=== PATIENT | female | born 1995 | race Two or more races ===

== ENCOUNTER → 2024-03-10 13:07 | Outpatient (BNVA) | payer OTHER, SELFPAY | PROVIDERS: Visit Provider Physician Assistant Medical | DX: Z13.89 Encounter for screening for other disorder (principal) | CPT/HCPCS: 73564; 73610; 99203 ==

== ENCOUNTER → 2024-03-17 14:41 | Outpatient (BNVA) | payer OTHER, SELFPAY | PROVIDERS: Visit Provider Registered Nurse | DX: Z13.89 Encounter for screening for other disorder (principal) | CPT/HCPCS: 99213 ==

== ENCOUNTER 2024-03-18 14:02 | Outpatient (AMB) | payer OTHER, SELFPAY ==
--- NOTE | 2024-03-18 14:16 | A.OFFVIS_ITS ---
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 Patient reports that she was walking whe she fell forward on her left side, injuring her ankle and bruising of her knee. States s he got up and kept walking however she continued to have pain. She was seen at work connection where she was placed in air cast. Her current pain level is 5 out of 10. Finds some relief with elevation and icing. 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 She reports she got up and kept walking after sustaining the fall. She was seen at work connection where she was placed in an air cast. She currently states she has jabbing pain in her ankle that is aggravated with weight bearing and ambulation. She rates the pain as 5 on the scale of 0-10. She finds relief with elevation and icing. 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 [facility] Social History (Updated 03/18/24 @ 14:18 by LAURITA Gutierrez) Patient Tobacco Use Status: Never used Tobacco Current occupational status: employed Current occupation: [employer] [place] [employer] [employer] [facility] Review of Systems Const All systems reviewed & are unremarkable except as noted in HPI and below Physical Exam Vital Signs: BMI result Body Mass Index 32.4 Const General: cooperative, healthy appearing, comfortable, no acute distress, well developed and alert Orientation/consciousness: patient oriented x3 HEENT Head: Yes normal to inspection, Yes normocephalic and Yes atraumatic Eyes General: appearance normal, both eyes and all related structures Resp Effort & Inspection: normal respiratory effort and able to speak in complete sentences Cardio Rate: regular rate Peripheral pulses: Peripheral pulses 2+ throughout GI Palpation (GI): Soft to palpation Skin Lesions: no lesions Rashes: no rashes Neuro General: patient oriented x3 Extrem Other: Left ankle: Normal to inspection with trace swelling over the medial malleolus with tenderness along the soft tissues. No discomfort along the posterior aspect of the ankle, no deformity along the Achilles tendon, negative Rubalcava?s. No pain along the syndesmosis or anterior tibia. No laxity, NVI. Results Reviewed Results Reviewed: xrays of the left ankle obtained outside the office are negative for acute fracture or dislocations. Assessment & Plan Assessment & Plan (1) Left ankle sprain: Code(s): S93.402A - Sprain of unspecified ligament of left ankle, initial encounter Category: Medical Qualifiers: Encounter type: initial encounter Involved ligament of ankle: anterior talofibular ligament Qualified Code(s): S93.492A - Sprain of other ligament of left ankle, initial encounter Plan We discussed options which include PT, NSAIDs and bracing. The patient will proceed with PT and NSAIDs. She was also given a lace up ankle brace in the office today. If symptoms persist, the patient will contact me for an injection, otherwise, PRN. Orders: Orders PT Evaluation and Treatment Today S93.402A - Sprain of unspecified ligament of left ankle, initial encounter Medications: New ibuprofen 800 mg PO Q8H PRN 90 tabs 3RF pain 30 days S52.209D - Unspecified fracture of shaft of unspecified ulna, subsequent encounter for closed fracture with routine healing Patient Instructions: Scribed for Angy Calderón PA-C, by Alton Hudson certified medical technician, on 03/18/2024 at 2:00 PM EST.? I, Angy Calderón PA-C, have personally reviewed and agree with the information entered by the scribe. Coding Level of Care Code New Pt Level 3 (05998) Diagnoses Sprain of anterior talofibular ligament of left ankle, initial encounter S93.492A Encounter type: initial encounter Involved ligament of ankle: anterior talofibular ligament
[2024-03-18 14:17] VITALS: BMI 32.4
== END 2024-03-18 15:49 | disposition home or self-care (01) ==
LOC: HO.HOS 14:04
PROVIDERS: Visit Provider Physician Assistant
DX: S93.492A Sprain of other ligament of left ankle, initial encounter (principal); W19.XXXA Unspecified fall, initial encounter; Z04.2 Encounter for examination and observation following work accident
CPT/HCPCS: 99203

== ENCOUNTER → 2024-03-18 14:04 | Outpatient (BNVA) | payer OTHER, SELFPAY | PROVIDERS: Visit Provider Physician Assistant | DX: S93.492A Sprain of other ligament of left ankle, initial encounter (principal) | CPT/HCPCS: 99202 ==